=== PATIENT | female | born 1985 | race Caucasian/White ===

== ENCOUNTER 2017-02-12 19:28 | Emergency (ER) | payer SELFPAY ==
[~2017-02-12] VITALS: Ht 154.9 cm; Wt 61.7 kg
[2017-02-12 20:00] VITALS: BP 119/87
[2017-02-12 21:34] LABS: microscopic required? YES; urine erythrocyte 3+ (NEGATIVE)
== END 2017-02-12 21:30 | disposition home or self-care (01) ==
LOC: ED 19:28
PROVIDERS: Emergency Medicine
DX: N39.0 Urinary tract infection, site not specified (principal); Z79.899 Other long term (current) drug therapy

== ENCOUNTER 2019-06-02 19:35 | Emergency (ER) | payer OTHER ==
[~2019-06-02] VITALS: Ht 162.6 cm; Wt 67.1 kg
[2019-06-02 19:39] VITALS: Ht 162.6 cm; Wt 67.1 kg
[2019-06-02 20:51] LABS: BASOPHIL % 0.5 % (0-2); PLATELET COUNT 190 x10^3mcL (130-400); RED CELL DISTRIBUTION WIDTH 12.8 % (11.5-14.5)
[2019-06-02 21:15] LABS: CALCIUM 8.9 mg/dL (8.5-10.1); CARBON DIOXIDE 27.9 mmol/L (21-32); CHLORIDE SERUM 106 mmol/L (98-107); CREATININE SERUM 0.6 mg/dL (0.6-1.0); GFR1 > 60 mL/min; GLUCOSE SERUM 117 mg/dL (74-106); POTASSIUM SERUM 3.7 mmol/L (3.5-5.1); SODIUM SERUM 142 mmol/L (136-145)
[2019-06-02 22:30] VITALS: BP 103/73
== END 2019-06-02 22:30 | disposition home or self-care (01) ==
LOC: ED 19:35
PROVIDERS: Emergency Medicine
DX: R07.89 Other chest pain (principal); R06.02 Shortness of breath; R00.2 Palpitations; Z91.013 Allergy to seafood; Z98.890 Other specified postprocedural states
CPT/HCPCS: 85378; Q0092